=== PATIENT | male | born 1980 | race Caucasian/White ===

== ENCOUNTER 2020-02-24 20:24 | Emergency (ER) | payer BC ==
[2020-02-24 20:41] VITALS: PULSE 76
[2020-02-24] MEDS ORDERED: SODIUM CHLORIDE 0.9% 1,000 ML IV STA (21:27)
[2020-02-24] MEDS ORDERED: ONDANSETRON 4 MG/2 ML VIAL IVP STA (21:27)
--- NOTE | 2020-02-24 21:32 | ED ---
General Adult HPI - General Chief complaint: Abdominal Pain Stated complaint: Abdominal Pain Time Seen by Provider: 02/24/20 20:42 Source: patient Mode of arrival: ambulatory Limitations: no limitations - History of Present Illness Initial comments: Dictation was produced using [employer] dictation software. please excuse any grammatical, word or spelling errors. This patient was cared for during a federal and state declared state of emergency secondary to Covid 19 Chief Complaint: 39-year-old male presents with epigastric abdominal pain and right flank pain. History of Present Illness: 39-year-old male who presents today and abdominal symptoms. Patient was seen here in emergency department 3 days ago. He was evaluated at that time for similar symptoms. Patient states he has epigastric abdominal pain. States that the pain radiates around to his right abdomen and towards his back. He was evaluated 3 days ago where he had a CT abdomen and pelvis. CT showed fecal stasis. Patient had tonight labs. Bony leukocytosis at that time. He was discharged home. Since he's been home feels like he hasn't really been improving as he was expecting 2. He denies any fever, chills or night sweats. Today he had sandwich and some soup for lunch today however just threw it up when he had to the emergency room. The ROS documented in this emergency department record has been reviewed and confirmed by me. Those systems with pertinent positive or negative responses have been documented in the HPI. All other systems are other negative and/or noncontributory. PHYSICAL EXAM: General Impression: Alert and oriented x3, not in acute distress HEENT: Normocephalic atraumatic, extra-ocular movements intact, pupils equal and reactive to light bilaterally, mucous membranes moist. Cardiovascular: Heart regular rate and rhythm Chest: Able to complete full sentences, no retractions, no tachypnea Abdomen: abdomen soft, mild epigastric abdominal tenderness to palpation, negative Rivera sign, no tenderness to palpation in the left or right lower quadrant. Abdomen is non-peritoneal and nontympanitic, non-distended, no organomegaly Musculoskeletal: Pulses present and equal in all extremities, no peripheral edema Motor: no focal deficits noted Neurological: CN II-XII grossly intact, no focal motor or sensory deficits noted Skin: Intact with no visualized rashes Psych: Normal affect and mood ED course: 39-year-old male presents with abdominal pain. Vital signs upon arrival are within acceptable limits. Patient is epigastric abdominal pain that relates to the back around from the right flank. He is a negative Rivera sign. CT of the abdomen and pelvis was reviewed from last ER visit, be benign. Laboratory evaluation obtained. CBC, metabolic panel is unremarkable. Abdominal labs are benign. Cardiac enzymes today is negative. Acute abdominal series shows no acute processes. She given morphine and Zofran with cessation of symptoms. At this point is unclear what exactly is causing patient's symptoms. He does not have any high-risk features. Given benign labs and symptomatic improvement no indication for repeat CT imaging. Patient is given a GI cocktail. Patient states he does not feel any different after the GI cocktail. He does believe that the morphine really help the symptoms. Discussed with patient is different disposition options. He wants to go home with GI referral. Patient given analgesic medications to go home with. Return parameters discussed. Patient will be discharged. EKG interpretation: Ventricular rate 61, normal sinus rhythm, MA interval 140, QRS 94, QTC 390. No MA prolongation, no QTC prolongation, no ST or T-wave changes noted. EKG compared to 02/21/2020 showing no changes. Overall, this EKG is unremarkable - Related Data Previous Rx's Medication Instructions Recorded Dicyclomine [Bentyl] 10 mg PO TID PRN #10 capsule 02/21/20 Ondansetron Odt [Zofran Odt] 4 mg PO Q8HR PRN #10 tab 02/21/20 HYDROcodone/APAP 5-325MG [[place] 1 tab PO Q6HR PRN 3 Days #12 tab 02/24/20 5-325] Allergies Allergy/AdvReac Type Severity Reaction Status Date / Time No Known Allergies Allergy Verified 02/24/20 20:41 Review of Systems ROS Statement: Those systems with pertinent positive or pertinent negative responses have been documented in the HPI. ROS Other: All systems not noted in ROS Statement are negative. Past Medical History Past Medical History: No Reported History History of Any Multi-Drug Resistant Organisms: None Reported Past Surgical History: No Surgical Hx Reported Past Psychological History: No Psychological Hx Reported Smoking Status: Never smoker Past Alcohol Use History: None Reported Past Drug Use History: None Reported General Exam Limitations: no limitations Course Vital Signs 02/24/20 20:38 Temperature 99.2 F Pulse Rate 76 Respiratory 20 Rate Blood Pressure 161/102 O2 Sat by Pulse 98 Oximetry Medical Decision Making - Lab Data Result diagrams: 02/24/20 21:25 02/24/20 21:25 Lab Results 02/24/20 02/24/20 02/24/20 Range/Units 21:25 21:25 21:25 WBC 9.7 (3.8-10.6) k/uL RBC 4.85 (4.30-5.90) m/uL Hgb 15.8 D (13.0-17.5) gm/dL Hct 43.8 (39.0-53.0) % MCV 90.2 (80.0-100.0) fL MCH 32.5 (25.0-35.0) pg MCHC 36.0 (31.0-37.0) g/dL RDW 12.5 (11.5-15.5) % Plt Count 190 (150-450) k/uL Neutrophils % 63 % Lymphocytes % 26 % Monocytes % 6 % Eosinophils % 3 % Basophils % 1 % Neutrophils # 6.2 (1.3-7.7) k/uL Lymphocytes # 2.5 (1.0-4.8) k/uL Monocytes # 0.6 (0-1.0) k/uL Eosinophils # 0.3 (0-0.7) k/uL Basophils # 0.1 (0-0.2) k/uL Sodium 137 (137-145) mmol/L Potassium 4.2 (3.5-5.1) mmol/L Chloride 104 (98-107) mmol/L Carbon Dioxide 26 (22-30) mmol/L Anion Gap 7 mmol/L BUN 17 (9-20) mg/dL Creatinine 1.02 (0.66-1.25) mg/dL Est GFR (CKD-EPI)AfAm >90 (>60 ml/min/1.73 sqM) Est GFR (CKD-EPI)NonAf >90 (>60 ml/min/1.73 sqM) Glucose 130 H (74-99) mg/dL Calcium 9.1 (8.4-10.2) mg/dL Magnesium 1.9 (1.6-2.3) mg/dL Total Bilirubin 0.7 (0.2-1.3) mg/dL Conjugated Bilirubin 0.0 (0.0-0.3) mg/dL Unconjugated Bilirubin 0.4 (0.0-1.1) mg/dL Delta Bilirubin 0.3 H (0.0-0.2) mg/dL AST 30 (17-59) U/L ALT 57 H (4-49) U/L Alkaline Phosphatase 59 (38-126) U/L Troponin I <0.012 (0.000-0.034) ng/mL Total Protein 6.2 L (6.3-8.2) g/dL Albumin 4.0 (3.5-5.0) g/dL Lipase 231 (23-300) U/L Disposition Clinical Impression: Abdominal pain Disposition: HOME SELF-CARE Condition: Good Instructions (If sedation given, give patient instructions): Abdominal Pain (ED) Prescriptions: HYDROcodone/APAP 5-325MG [[place] 5-325] 1 tab PO Q6HR PRN 3 Days #12 tab PRN Reason: Severe Pain Is patient prescribed a controlled substance at d/c from ED?: Yes If prescribed controlled substance>3 days was MAPS reviewed?: Prescribed <3 Days Referrals: Humberto Paulson MD [Primary Care Provider] - 1-2 days Lucas Garrett MD [STAFF PHYSICIAN] - 1-2 days Time of Disposition: 22:51
[2020-02-24 21:33] LABS: Basophils # (A) 0.1 k/uL (0-0.2); Basophils % (A) 1 %; Eosinophils # (A) 0.3 k/uL (0-0.7); Eosinophils % (A) 3 %; HCT 43.8 % (39.0-53.0); Lymphocytes # (A) 2.5 k/uL (1.0-4.8); Lymphocytes % (A) 26 %; MCH 32.5 pg (25.0-35.0); MCV 90.2 fL (80.0-100.0); Mean Platelet Volume 8.3; Monocytes # (A) 0.6 k/uL (0-1.0); Monocytes % (A) 6 %; Neutrophils # (A) 6.2 k/uL (1.3-7.7); Neutrophils % (A) 63 %; Platelet Count 190 k/uL (150-450); RBC 4.85 m/uL (4.30-5.90); RDW 12.5 % (11.5-15.5); WBC 9.7 k/uL (3.8-10.6)
[2020-02-24] MEDS ORDERED: MORPHINE SULFATE 4 MG/ML SYRINGE IV STA (21:34)
[2020-02-24 21:35] LABS: HGB 15.8 gm/dL (13.0-17.5)
[2020-02-24 21:44] LABS: ALT 57 U/L (4-49); AST 30 U/L (17-59); African American GFR (CKD) >90 (>60 ml/min/1.73 sqM); Alkaline Phosphatase 59 U/L (38-126); Anion Gap 7 mmol/L; Bilirubin, Delta 0.3 mg/dL (0.0-0.2); Bilirubin,Unconjugated 0.4 mg/dL (0.0-1.1); Blood Urea Nitrogen 17 mg/dL (9-20); Calcium 9.1 mg/dL (8.4-10.2); Carbon Dioxide 26 mmol/L (22-30); Chloride 104 mmol/L (98-107); Glucose 130 mg/dL (74-99); Magnesium 1.9 mg/dL (1.6-2.3); Non-African American GFR(CKD) >90 (>60 ml/min/1.73 sqM); Potassium 4.2 mmol/L (3.5-5.1); Sodium 137 mmol/L (137-145); Total Bilirubin 0.7 mg/dL (0.2-1.3); Total Protein 6.2 g/dL (6.3-8.2)
--- NOTE | 2020-02-24 21:53 | XR ---
EXAMINATION TYPE: XR abdomen acute w cxr DATE OF EXAM: 02/24/2020 COMPARISON: Chest x-ray 02/21/2020 HISTORY: Abdominal pain. Chest pain TECHNIQUE: 4 views FINDINGS: Heart and mediastinum are normal. Lungs are clear. Diaphragm is normal. Bony thorax appears normal. Bowel gas pattern is normal. There is no sign of intestinal obstruction or pneumoperitoneum. Fecal pattern is normal. There is no evidence of a mass. There are no calcifications over the kidney s. IMPRESSION: Nonacute abdomen. Normal chest. Chest unchanged compared to last exam.
[2020-02-24] MEDS ORDERED: MAG HYDROX/AL HYDROX/SIMETH 30 ML, HYOSCYAMINE ELIXIR 10 ML, LIDOCAINE VISCOUS 2% 10 ML PO STA ×3 (22:09)
[2020-02-24] MEDS ORDERED: ACET/COD 300 MG/30 MG STARTER PACK 6 TAB BTL PO STA (22:52)
[2020-02-24 23:05] VITALS: BP 127/83; RESP 18; TEMP 100.7
== END 2020-02-24 23:05 | disposition home or self-care (01) ==
LOC: EC 20:24
DX: R10.13 Epigastric pain (principal)
CPT/HCPCS: 36415; 93005; 80053; 82248; 83690; 83735; 84484; 85025; 74022; 99284; 96374; 96375; 96361; J2270; J2405

== ENCOUNTER 2020-07-25 13:55 | Emergency (ER) | payer BC ==
[2020-07-25 14:01] VITALS: BP 110/77; PULSE 85; RESP 20; TEMP 97.7
--- NOTE | 2020-07-25 14:26 | ED ---
General Adult HPI - General Chief complaint: Chest Pain Stated complaint: Chest Pain/Injury Time Seen by Provider: 07/25/20 14:06 Source: patient, RN notes reviewed, old records reviewed Mode of arrival: ambulatory Limitations: no limitations - History of Present Illness Initial comments: 40-year-old male patient ED for evaluation of chest wall pain. Patient for several Wednesday he was playing basketball when he caught a shoulder to the sternum/right rib region. Patient reports that it briefly knocked the wind out of him and he did not fall to the ground. Since then he has had pain in his sternal region as well as the right-sided ribs. He denies any shortness of breath he denies any other acute complaints. Systemic: Pt denies fatigue, fever/chills, rash. Pt denies weakness, night sweats, weight loss. Neuro: Pt denies headache, visual disturbances, syncope or pre-syncope. HEENT: Pt denies ocular discharge or irritation, otalgia, rhinorrhea, pharyngitis or notable lymphadenopathy. Cardiopulmonary: Pt denies SOB, heart palpitations, dyspnea on exertion. Abdominal/GI: Pt denies abdominal pain, n/v/d. : Pt denies dysuria, burning w/ urination, frequency/urgency. Denies new onset urinary or bowel incontinence. MSK: Pt denies myalgia, loss of strength or function in extremities. Neuro: Pt denies new onset weakness, paresthesias. - Related Data Previous Rx's Medication Instructions Recorded Dicyclomine [Bentyl] 10 mg PO TID PRN #10 capsule 02/21/20 Ondansetron Odt [Zofran Odt] 4 mg PO Q8HR PRN #10 tab 02/21/20 HYDROcodone/APAP 5-325MG [[place] 1 tab PO Q6HR PRN 3 Days #12 tab 02/24/20 5-325] Allergies Allergy/AdvReac Type Severity Reaction Status Date / Time No Known Allergies Allergy Verified 07/25/20 14:01 Review of Systems ROS Statement: Those systems with pertinent positive or pertinent negative responses have been documented in the HPI. ROS Other: All systems not noted in ROS Statement are negative. Past Medical History Past Medical History: No Reported History History of Any Multi-Drug Resistant Organisms: None Reported Past Surgical History: No Surgical Hx Reported Past Psychological History: No Psychological Hx Reported Smoking Status: Never smoker Past Alcohol Use History: None Reported Past Drug Use History: None Reported General Exam - General Exam Comments Initial Comments: Constitutional: NAD, AOX3, Pt has pleasant affect. HEENT: NC/AT, trachea midline, neck supple, no lymphadenopathy. Posterior pharynx non erythematous, without exudates. External ears appear normal, without discharge. Mucous membranes moist. Eyes PERRLA, EOM intact. There is no scleral icterus. No pallor noted. Cardiopulmonary: RRR, no murmurs, rubs or gallops, no JVD noted. Lungs CTAB in anterior and posterior garza. No peripheral edema. Abdominal exam: Abdomen soft and non-distended. Abdomen non-tender to palpation in all 4 quadrants. Bowel sounds active in LLQ. No hepatosplenomegaly. No ecchymosis Neuro: CN II-XII grossly intact. No nuchal rigidity. No raccon eyes, no allison sign, no hemotympanum. No cervical spinal tenderness. MSK: Sternum and right ribs are mildly tender to palpation. There are no external skin changes. No posterior calf tenderness bilaterally, homans sign negative bilaterally. Posterior tibialis and radial pulse +2 bilaterally. Se nsation intact in upper and lower extremities. Full active ROM in upper and lower extremities, 5/5 stregnth. Limitations: no limitations Course Vital Signs 07/25/20 13:58 Temperature 97.7 F Pulse Rate 85 Respiratory 20 Rate Blood Pressure 110/77 O2 Sat by Pulse 98 Oximetry Medical Decision Making - Medical Decision Making 40 year old male patient to ED After he caught a shoulder to the chest plain basketball. This happened on Wednesday. Plain films are negative. Physical exam displayed mild reproducible tenderness. EKG nonischemic. Patient will be discharged with analgesia outpatient follow-up and return precautions. Case discussed with Dr. Mccray. - EKG Data -: EKG Interpreted by Me (and Dr. Mccray ) EKG Comments: ventricular rate 73, LA interval 142, QRS 98, QT/QTC 386/425. Normal sinus rhythm. Cannot rule out inferior infarct age indeterminate. No concern for acute ischemia. Disposition Clinical Impression: Chest wall pain Disposition: HOME SELF-CARE Condition: Stable Instructions (If sedation given, give patient instructions): Chest Wall Pain (ED) Additional Instructions: Follow up with PCP tomororw. Use tylenol and motrin for pain. If you need to take the tylenol #3, do not drive your vehicle, operate machinery, or drink any alcohol/other drugs with this medication. Return to ED with any worsening symptoms. Is patient prescribed a controlled substance at d/c from ED?: No Referrals: Anuj Curtis MD [Primary Care Provider] - 1-2 days
--- NOTE | 2020-07-25 14:43 | XR ---
EXAMINATION TYPE: XR sternum DATE OF EXAM: 07/25/2020 COMPARISON: None HISTORY: Pain TECHNIQUE: Two-view sternum FINDINGS: Retrosternal space is normal. Sternal clavicular junction is normal. No acute fractures are evident. IMPRESSION: 1. Normal two-view sternum
--- NOTE | 2020-07-25 14:44 | XR ---
EXAMINATION TYPE: XR chest 2V DATE OF EXAM: 07/25/2020 COMPARISON: 02/21/2020 INDICATION: Pain TECHNIQUE: Frontal and lateral views of the chest are obtained. FINDINGS: The heart size is normal. The pulmonary vasculature is normal. The lungs are clear. No significant interval changes evident. IMPRESSION: 1. No acute pulmonary process.
--- NOTE | 2020-07-25 14:45 | XR ---
EXAMINATION TYPE: XR ribs RT DATE OF EXAM: 07/25/2020 COMPARISON: None HISTORY: Pain TECHNIQUE: 2 view right ribs FINDINGS: No pneumothorax is evident on these images. Right ribs appear intact. No acute displaced fr actures are evident. IMPRESSION: 1. Normal right ribs
[2020-07-25] MEDS ORDERED: ACET/COD 300 MG/30 MG STARTER PACK 6 TAB BTL PO STA (15:02)
== END 2020-07-25 15:06 | disposition home or self-care (01) ==
LOC: EC 13:55
DX: R07.89 Other chest pain (principal); W51.XXXA Accidental striking against or bumped into by another person, initial encounter; Y93.67 Activity, basketball
CPT/HCPCS: 71046; 71120; 93005; 99285

== ENCOUNTER → 2023-05-05 | Outpatient (CLI) | payer BC ==
[2023-05-05 11:11] LABS: Basophils # (A) 0.03 X 10*3/uL (0.00-0.10); Basophils % (A) 0.5 %; Eosinophils # (A) 0.15 X 10*3/uL (0.04-0.35); Eosinophils % (A) 2.5 %; HGB 16.5 d/dL (13.0-17.0); Lymphocytes # (A) 1.66 X 10*3/uL (0.90-5.00); Lymphocytes % (A) 27.5 %; MCH 30.8 pg (27.0-32.0); MCHC 34.4 d/dL (32.0-37.0); MCV 89.7 FL (80.0-97.0); Mean Platelet Volume 11.2 FL (9.5-12.2); Monocytes # (A) 0.54 X 10*3/uL (0.20-1.00); Monocytes % (A) 8.9 %; NRBC Per 100 WBC 0 X 10*3/uL (0.00-0.01); Neutrophils # (A) 3.64 X 10*3/uL (1.80-7.70); Neutrophils % (A) 60.3 %; Platelet Count 175 X 10*3/uL (140-440); RBC 5.35 X 10*6/uL (4.40-5.60); RDW 11.9 % (11.5-14.5); WBC 6.04 X 10*3/uL (4.50-10.00)
[2023-05-05 11:35] LABS: ALT 80 U/L (10-49); AST 174 U/L (14-35); Albumin 4.7 d/dL (3.8-4.9); Albumin/Globulin Ratio 2.24 Ratio (1.60-3.17); Alkaline Phosphatase 63 U/L (41-126); Blood Urea Nitrogen 18.8 mg/dL (9.0-27.0); Calcium 9.6 mg/dL (8.7-10.3); Carbon Dioxide 26.6 mmol/L (21.6-31.8); Chloride 104 mmol/L (96-109); Chol/HDL Ratio 4.47 Ratio; Globulin 2.1 d/dL (1.6-3.3); Glucose 104 mg/dL (70-110); LDL Cholesterol,Calculated 124.5 mg/dL (0.0-131.0); Potassium 4.4 mmol/L (3.5-5.5); Prostate Specific Antigen 1.03 ng/mL (0.000-2.500); Sodium 141 mmol/L (135-145); Total Bilirubin 0.5 mg/dL (0.3-1.2); Total Protein 6.8 d/dL (6.2-8.2); VLDL Calculation 18.34 mg/dL (5.00-40.00)
== END | disposition home or self-care (01) ==
LOC: LABWHC1 07:28
PROVIDERS: ATTEND Internal Medicine Geriatric Medicine
DX: Z00.00 Encounter for general adult medical examination without abnormal findings (principal); E78.5 Hyperlipidemia, unspecified; N40.0 Benign prostatic hyperplasia without lower urinary tract symptoms; R79.9 Abnormal finding of blood chemistry, unspecified
CPT/HCPCS: 36415; 80053; 80061; 83036; 84153; 84443; 85025

== ENCOUNTER → 2023-05-05 | Outpatient (CLI) | payer BC ==
--- NOTE | 2023-05-05 08:23 | US ---
EXAMINATION TYPE: US scrotum with doppler. Grayscale and color Doppler Duplex imaging performed of merlene díaz scrotum. DATE OF EXAM: 05/05/2023 COMPARISON: NONE CLINICAL INDICATION: Male, 42 years old with history of N50.3 CYST OF EPIDIDYMUS; Pt states palpable lumps bilaterally x 2 years that have recently increased in size EXAM MEASUREMENTS: TESTICLES: Right Testicle: 5.3 x 2.7 x 4.0 cm Left Testicle: 5.6 x 2.4 x 4.0 cm EPIDIDYMIS HEAD: Right Epididymis: Large cystic area with septations at epi head in area of pt's palpable= 5.1 x 2.4 x 4.0 cm Left Epididymis: Cystic area with septations at epi head in area of pt's palpable= 2.8 x 1.6 x 2.9 cm Doppler performed to assess for testicular vascularity; good bilateral color flow and waveforms are s een. There is no evidence of testicular torsion. Presence of hydroceles: No Presence of varicoceles: No Bilateral rete testes lateral aspect of testicles, bilateral epi head complicated cysts. IMPRESSION: 1. Bilateral epididymal head complicated cysts. 2. Bilateral rete testes.
== END | disposition home or self-care (01) ==
LOC: RADUSWWP 06:54
PROVIDERS: ATTEND Internal Medicine Geriatric Medicine
DX: N50.3 Cyst of epididymis (principal)
CPT/HCPCS: 76870; 93975